=== PATIENT | male | born 1950 | race Hispanic/Latino ===

== ENCOUNTER 2016-09-22 12:07 | Emergency (ER) | payer OTHER ==
[~2016-09-22] VITALS: Ht 165.1 cm; Wt 101.2 kg
[~2016-09-22 12:07] MED LIST: ALLOPURINOL100 MG PO; BACTRIM,SEPT1 TABLE1 PO; Ceftin PO; Chronulac,Cephulac,E PO; DELFLEX PD; ENDOCET 5-3251 EACH PO; FERROUS SULFAT325 MG PO; GABAPENTIN100 MG PO; JANUVIA25 M1 PO; Januvia PO; LANTUS 3 M100 UNITS1 SC; LASIX40 MG PO; LEVEMIR100 UNIT/2 SC; LIPITOR40 MG PO; LOW DOSE ASPIRI81 M2 PO; Lipitor PO; MAGNESIUM OXID400 MG PO; MULTI VITAMIN1 EACH PO; MYFORTIC360 MG PO; Mag-Ox PO; Maxipime PD; NIASPAN,SLO-NI500 MG PO; NORVASC10 MG PO; NOVOLOG 10100 UNITS/ SC; NOVOLOG PE100 UNITS/ SC; Norvasc PO; OMEPRAZOLE20 M2 PO; PREDNISONE10 MG PO; PRILOSEC20 MG PO; PROGRAF0.5 MG PO; PROGRAF1 MG PO; Protonix PO; RENVELA800 MG PO; Rocaltrol PO; SENSIPAR30 MG PO; Sensipar PO; VALTREX1000 MG PO; VITAMIN D250000 UNIT PO; Vancomycin PD; Zyloprim PO; [UNRECOGNIZED DRUG - MIXTURE] PD; [UNRECOGNIZED DRUG - OTHER] PD; [UNRECOGNIZED DRUG - OTHER] PD; predniSONE PO
[2016-09-22 13:23] LABS: MCH 29.8 PG (29.0-34.0); MCV 87.7 FL (86-99); MEAN PLAT.VOLUME 9.3 uM^3 (9.0-12.4); PLATELET COUNT 271 K/uL (156-360); RBC DIS.WIDTH-CV 12.7 % (11.8-14.6); RBC DIS.WIDTH-SD 40.1 % (39-53); RED BLOOD COUNT 5.13 M/uL (4.00-5.50); WHITE BLOOD COUNT 10.3 K/uL (4.1-10.2)
[2016-09-22 13:37] LABS: CHLORIDE 107 mEq/L (99-109); POTASSIUM 4.9 mEq/L (3.7-5.4); SODIUM 144 mEq/L (136-147)
[2016-09-22 13:38] LABS: GLUCOSE 51 mg/dL (70-99)
[2016-09-22 13:40] LABS: ANION GAP 9 MEQ/L (2-14)
[2016-09-22 13:42] LABS: GFR ESTIMATE (CALCULATED) > 59 mL/min/
[2016-09-22 13:43] LABS: UREA NITROGEN (BUN) 15 mg/dL (9-23)
[2016-09-22 14:38] LABS: POINT-OF-CARE METER ID UU13113800
[2016-09-22 15:39] LABS: ADD MIUA? NO; BILIRUBIN NEGATIVE; BLOOD NEGATIVE; COLOR YELLOW ((YELLOW)); GLUCOSE (STRIP) 250; KETONES NEGATIVE; LEUKOCYTES NEGATIVE; NITRITE NEGATIVE; PH, URINE 6.5 (5-8); PROTEIN (STRIP) TRACE
[2016-09-22 15:40] LABS: POINT-OF-CARE METER ID UU13113800
[2016-09-22 17:12] LABS: POINT-OF-CARE METER ID UU13113800
[2016-09-22] MEDS ORDERED: CEFDINIR300 MG PO (17:29)
[2016-09-22] MEDS ORDERED: GABAPENTIN300 MG PO (17:29)
[2016-09-22] MEDS ORDERED: PREDNISONE10 MG PO (17:29)
[2016-09-22] MEDS ORDERED: CARVEDILOL3.125 MG PO (17:31)
[2016-09-22] MEDS ORDERED: MAGNESIUM400 M1 PO (17:32)
[2016-09-22] MEDS ORDERED: PHENERGAN-CODE120 ML PO (17:32)
[2016-09-22 18:37] LABS: POINT-OF-CARE METER ID UU13113800
[2016-09-22 19:54] LABS: POINT-OF-CARE METER ID UU13113800
[2016-09-22] MEDS ORDERED: MUCINEX1200 MG PO (20:07)
[2016-09-22] MEDS ORDERED: FLONASE16 G1 BOTH NARES (20:07)
[2016-09-22] MEDS ORDERED: ANTIVERT25 MG PO (20:07)
[2016-09-22] MEDS ORDERED: TESSALON PERLE100 MG PO (20:14)
[2016-09-22 20:31] VITALS: BP 142/88
== END 2016-09-22 20:33 | disposition home or self-care (01) ==
LOC: EME 12:07 → RME 12:07
PROVIDERS: Physician Assistant
DX: H65.193 Other acute nonsuppurative otitis media, bilateral (principal); J06.9 Acute upper respiratory infection, unspecified; E11.649 Type 2 diabetes mellitus with hypoglycemia without coma; H81.399 Other peripheral vertigo, unspecified ear; Z94.0 Kidney transplant status
CPT/HCPCS: 70450; 71020; 80048; 81003; 82948; 85027; 93005; 99281; 99285